=== PATIENT | female | born 1965 | race Two or more races ===

== ENCOUNTER 2020-03-09 08:53 | Outpatient (CLI) | payer OTHER | END 2020-03-09 09:05 | disposition home or self-care (01) | LOC: RX STUDY 08:53 | PROVIDERS: ATTEND Internal Medicine Gastroenterology | DX: R13.19 Other dysphagia (principal) ==

== ENCOUNTER 2020-05-03 11:27 | Outpatient (CLI) | payer OTHER | END 2020-05-03 11:32 | disposition home or self-care (01) | LOC: SONOGRAMA 11:27 | PROVIDERS: ATTEND Pathology Anatomic Pathology | DX: E04.2 Nontoxic multinodular goiter (principal) ==